=== PATIENT | female | born 1995 | race Caucasian/White ===

== ENCOUNTER → 2020-01-09 | Outpatient (CLI) | payer BC, OTHER ==
--- NOTE | 2020-01-09 13:58 | FL ---
Barium swallow HISTORY: Nausea and vomiting 87 seconds fluoroscopy time, 76 images obtained. Patient was given high density barium to drink. The swallowing mechanism is normal. There is no extrinsic or intrinsic esophageal lesion present. Sma ll sliding hiatal hernia present. No gastroesophageal reflux. IMPRESSION: No abnormality evident.
== END | disposition home or self-care (01) ==
LOC: RADUSWWP 10:06
PROVIDERS: ATTEND Family Medicine
DX: R13.19 Other dysphagia (principal)
CPT/HCPCS: 74220

== ENCOUNTER 2020-03-26 08:41 | Day surgery (SDC) | payer BC ==
[2020-03-17 14:25] VITALS: BMI 33.3
[~2020-03-26 08:41] MED LIST: LACTATED RINGERS 1,000 ML IV SCH; LIDOCAINE 1% (10MG/ML) FOR IV START INTRADERMA PRN
[2020-03-26 09:30] VITALS: TEMP 97.7
[2020-03-26] MEDS ORDERED: KETAMINE 10 MG/ML 20 ML VIAL ONE (10:12)
[2020-03-26] MEDS ORDERED: PROPOFOL 10 MG/ML 20 ML VIAL IV ONE (10:12)
[2020-03-26] MEDS ORDERED: GLYCOPYRROLATE 0.2 MG/ML 2 ML VIAL ONE (10:12)
[2020-03-26] MEDS ORDERED: LIDOCAINE 1% INJ 10MG/ML (20 ML MDV) ONE (10:12)
--- NOTE | 2020-03-26 10:48 | P.PCN ---
Date of Procedure: 03/26/20 Description of Procedure: Brief history: Patient is a pleasant 24-year-old female scheduled for an elective upper endoscopy as well as colonoscopy as a part of evaluation of dysphagia and noninfective gastritis and colitis, also has history of reflux, altered bowel function and diarrhea. She reports symptoms of difficulty swallowing and occurring intermittently. She'll have periods where she has no difficulty and then they will increase and can last for days. She also reports alternating diarrhea and constipation and abdominal pain. Procedure performed: Esophagogastroduodenoscopy with biopsy Colonoscopy with biopsy Estimated blood loss: Minimal. Preoperative diagnosis: Dysphagia, reflux, noninfected gastritis and colitis, altered bowel function, diarrhea, no prior endoscopy reported Anesthesia: MAC Procedure: After informed consent was obtained from the patient was brought into the endoscopy unit and IV sedation was administered by anesthesia under continuous monitoring. Initially upper endoscopy was done. The Olympus GF 190 video endoscope was inserted into the mouth and esophagus intubated without any difficulty and was gradually advanced into the stomach and duodenum and carefully examined. The bulb and second part of the duodenum appeared normal, with biopsies taken to rule out celiac disease. The scope was then withdrawn into the stomach adequately insufflated with air and upon careful examination the antrum and body, cardia and fundus appeared normal, except for some mild scattered erythema in antrum and body suggestive of mild gastritis of biopsies taken. The scope was then withdrawn into the esophagus. The GE junction was located at 40 cm to the incisors. It appeared regular with no erythema erosions or ulcerations, there were also no strictures or masses to explain symptoms of dysphagia. She did have 5 cm of salmon-colored mucosa in the distal esophagus suspicious for Calles's esophagus with biopsies of lower esophagus taken. Rest of the esophagus appeared normal. Patient tolerated the procedure well. At this time the patient continued to remain sedation. Initial digital rectal examination was normal. Olympus CF 190 video colonoscope was then inserted into the rectum and gradually advanced to the cecum without any difficulty. Careful examination was performed as the scope was gradually being withdrawn. The prep was excellent. The cecum, ascending colon, transverse colon, descending colon, sigmoid colon and rectum appeared normal. Retroflexion was performed in the rectum and no lesions were noted. Patient tolerated the procedure well. Impression: 1. No stricturing, ulceration or masses noted. 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 Mild gastritis. Biopsies of the duodenum, antrum and body and lower esophagus. 2. Normal-appearing colon from rectum to cecum and normal appearing terminal ileum with biopsies taken of the terminal ileum, right colon and left colon in the setting of altered bowel function and diarrhea. Recommendations: Findings of this examination were discussed with the patient as well as her family. Okay to resume diet. Okay to resume medications. Continue Protonix 40 mg daily in the setting of suspected Calles's esophagus, possible diagnosis discussed with the patient laying 2 would require repeat EGD in 2 years if Calles's esophagus is confirmed on biopsies. Await pathology from biopsies from EGD and colonoscopy. Continue symptomatic management. Repeat EGD in 2 years as stated if Calles's esophagus is confirmed.
[2020-03-26 10:49] VITALS: RESP 16
[2020-03-26 11:07] VITALS: BP 113/57; PULSE 64
== END 2020-03-26 11:23 ==
LOC: ORWHC2ENDO 08:41
PROVIDERS: ATTEND Internal Medicine
DX: R19.7 Diarrhea, unspecified (principal); K59.00 Constipation, unspecified; K21.9 Gastro-esophageal reflux disease without esophagitis; K29.50 Unspecified chronic gastritis without bleeding; K22.70 Barrett's esophagus without dysplasia; J45.909 Unspecified asthma, uncomplicated; F41.9 Anxiety disorder, unspecified; F32.9 Major depressive disorder, single episode, unspecified; M19.90 Unspecified osteoarthritis, unspecified site; G47.00 Insomnia, unspecified; F43.10 Post-traumatic stress disorder, unspecified; Z88.5 Allergy status to narcotic agent; Z91.010 Allergy to peanuts; Z91.018 Allergy to other foods; Z91.013 Allergy to seafood; Z91.011 Allergy to milk products; Z79.899 Other long term (current) drug therapy; Z97.5 Presence of (intrauterine) contraceptive device; Z98.890 Other specified postprocedural states; Z90.89 Acquired absence of other organs; Z79.51 Long term (current) use of inhaled steroids; Z87.898 Personal history of other specified conditions
CPT/HCPCS: 81025; 88305; 45380; 43239; J2001; J2704

== ENCOUNTER 2022-01-11 23:14 | Emergency (ER) | payer BC, OTHER ==
[2022-01-11 23:22] VITALS: TEMP 98.2
[2022-01-11] MEDS ORDERED: diphenhydrAMINE 50 MG/ML 1 ML VIAL IVP STA (23:38)
[2022-01-11] MEDS ORDERED: SODIUM CHLORIDE 0.9% 1,000 ML IV STA (23:38)
[2022-01-11] MEDS ORDERED: METOCLOPRAMIDE 5 MG/ML 2 ML VIAL IVP STA (23:38)
[2022-01-11] MEDS ORDERED: KETOROLAC 15 MG/ML 1 ML VIAL IVP STA (23:38)
--- NOTE | 2022-01-11 23:38 | ED ---
Headache HPI - General Chief Complaint: Headache Stated Complaint: Headache, lightheaded Time Seen by Provider: 01/11/22 23:27 Source: RN notes reviewed Mode of arrival: wheelchair - History of Present Illness Initial Comments: This is a pleasant 26-year-old female presents complaining of a headache, sore throat, dry cough. Patient states that she suspects it might be carbon monoxide poisoning as she is staying at a person's house and a detector went off a few days ago. She states nobody else is staying in that portion of the house. No other individuals are ill. Patient states she does have a history of migraine headaches. Denying any fever. Denying any productive cough. Denies chance of . no fever or chills, no changes in vision or hearing, no ear pain, nasal discharge, difficulty with speech, no neck pain, no chest pain or shortness of breath, no abdominal pain, no nausea or vomiting, no changes in urination or bowel movements, no numbness or tingling, no extremity pain, no skin rashes or lesions. Past medical, surgical, social, and family history reviewed. MD Complaint: headache - Related Data Home Medications Medication Instructions Recorded Confirmed Albuterol Nebulized [Ventolin 2.5 mg INHALATION Q6HR PRN 01/21/20 03/17/20 Nebulized] Albuterol Sulfate [Proair Hfa] 2 puff INHALATION DIRECTED PRN 01/21/20 03/17/20 Beclomethasone Dip 80 Mcg/Puff 1 puff INHALATION DIRECTED PRN 01/21/20 03/17/20 [Qvar 80 mcg] Budesonide-Formot 160-4.5 Mcg 2 puff INHALATION BID 01/21/20 03/17/20 [Symbicort 160-4.5 Mcg Inhaler] Etonogestrel/Ethinyl Estradiol 1 each VG Q21D 01/21/20 03/17/20 [Nuvaring Vaginal Ring] Fluticasone Nasal [place] [Flonase 1 spray EA NOSTRIL BID 01/21/20 03/17/20 Nasal [place]] Ibuprofen 800 mg PO Q8H PRN 01/21/20 03/17/20 Pantoprazole [Protonix] 40 mg PO QAM 01/21/20 03/17/20 QUEtiapine [SEROquel] 100 mg PO HS 01/21/20 03/17/20 busPIRone HCL 10 mg PO TID 01/21/20 03/17/20 hydrOXYzine HCL [Atarax] 25 mg PO TID 01/21/20 03/17/20 tiZANidine [Zanaflex] 8 mg PO Q8HR PRN 01/21/20 03/17/20 EPINEPHrine (Auto Inject) [Epipen] 0.3 mg IM ONCE PRN 03/17/20 03/17/20 Allergies Allergy/AdvReac Type Severity Reaction Status Date / Time codeine Allergy Itching Verified 01/11/22 23:22 peanut Allergy Dyspnea Verified 01/11/22 23:22 tree nut [Nut] Allergy Dyspnea Verified 01/11/22 23:22 crab Allergy Unknown Uncoded 03/17/20 12:55 dairy Allergy Unknown Uncoded 03/17/20 12:55 rye Allergy Unknown Uncoded 03/17/20 12:55 wheat Allergy Unknown Uncoded 03/17/20 12:55 Review of Systems ROS Statement: Those systems with pertinent positive or pertinent negative responses have been documented in the HPI. ROS Other: All systems not noted in ROS Statement are negative. Past Medical History Past Medical History: Asthma, GERD/Reflux, Osteoarthritis (OA) Additional Past Medical History / Comment(s): migraines, insomnia, "passing out from low protein", frequent nausea on & off for years, intermittent abd. pain, strong family hx. of celiac disease History of Any Multi-Drug Resistant Organisms: None Reported Past Surgical History: Adenoidectomy, Tonsillectomy Additional Past Surgical History / Comment(s): wisdom teeth removal, side of great toes removed for ingrown toenails, exploratory laparoscopy Past Anesthesia/Blood Transfusion Reactions: Motion Sickness Past Psychological History: Anxiety, Depression, PTSD Smoking Status: Former smoker Past Alcohol Use History: Occasional Past Drug Use History: None Reported - Past Family History Mother Family Medical History: No Reported History Additional Family Medical History / Comment(s): family hx celiac disease General Exam - General Exam Comments Initial Comments: Nontoxic-appearing 26-year-old female in minimal distress secondary to headache General appearance: alert, in distress (Minimal) Head exam: Present: atraumatic, normocephalic, normal inspection Eye exam: Present: normal appearance, PERRL, EOMI. Absent: scleral icterus, conjunctival injection, periorbital swelling ENT exam: Present: normal exam, normal oropharynx, mucous membranes moist, TM's normal bilaterally, normal external ear exam. Absent: mucous membranes dry Neck exam: Present: normal inspection, full ROM. Absent: tenderness, men ingismus, lymphadenopathy Respiratory exam: Present: normal lung sounds bilaterally, other (Dry, nonproductive cough noted). Absent: respiratory distress, wheezes, rales, rho nchi, stridor, chest wall tenderness, accessory muscle use, decreased breath sounds, prolonged expiratory Cardiovascular Exam: Present: regular rate, normal rhythm, normal heart sounds. Absent: systolic murmur, diastolic murmur, rubs, gallop, clicks GI/Abdominal exam: Present: soft, normal bowel sounds. Absent: distended, tenderness, guarding, rebound, rigid Extremities exam: Present: normal inspection, full ROM, normal capillary refill. Absent: tenderness, pedal edema, joint swelling, calf tenderness Back exam: Present: normal inspection Neurological exam: Present: alert, oriented X3, CN II-XII intact Psychiatric exam: Present: normal affect, normal mood Skin exam: Present: warm, dry, intact, normal color, other (No cannon red lips). Absent: rash, cyanosis, diaphoretic, erythema, urticaria, vesicles, petechiae, pallor, mottled, abrasion Course Vital Signs 01/11/22 01/11/22 23:20 23:31 Temperature 98.2 F Pulse Rate 74 74 Respiratory 18 20 Rate Blood Pressure 102/69 O2 Sat by Pulse 100 100 Oximetry - Reevaluation(s) Reevaluation #1: 01/12/22 01:44 Medical record is reviewed Symptoms are improved here in the emergency department Patient is informed of results and questions answered Patient in no distress Medical Decision Making - Medical Decision Making Patient symptomology, seems to more indicative of a viral respiratory infection with dry cough rather than carbon monoxide poisoning. However we'll add on a ca rboxyhemoglobin as well as viral testing. Hydration, headache treatment, plan for reevaluation Patient's carbon monoxide level is 2.5. Going to advise that she does not go back into that area. However, this is relatively low. Patient is a nonsmoker. only treatment would be to remove the patient from the area. Patient is in no distress. Follow-up with your regular physician as directed. Return to the ER immediately if any symptoms worsen, new symptoms arise, or any other problems develop. The case was discussed in detail with ED attending physician. Presentation, findings, treatment plan discussed in detail. Director Veterinary Dr. Wright - Lab Data Result diagrams: 01/12/22 00:01 01/12/22 00:01 Lab Results 01/12/22 01/12/22 01/12/22 Range/Units 00:01 00:01 00:01 WBC 8.5 (3.8-10.6) k/uL RBC 4.52 (3.80-5.40) m/uL Hgb 13.1 (11.4-16.0) gm/dL Hct 38.5 (34.0-46.0) % MCV 85.1 (80.0-100.0) fL MCH 29.0 (25.0-35.0) pg MCHC 34.1 (31.0-37.0) g/dL RDW 12.9 (11.5-15.5) % Plt Count 305 (150-450) k/uL MPV 8.5 Neutrophils % 63 % Lymphocytes % 26 % Monocytes % 6 % Eosinophils % 4 % Basophils % 1 % Neutrophils # 5.3 (1.3-7.7) k/uL Lymphocytes # 2.2 (1.0-4.8) k/uL Monocytes # 0.5 (0-1.0) k/uL Eosinophils # 0.3 (0-0.7) k/uL Basophils # 0.0 (0-0.2) k/uL Carbon Monoxide, Quant (<10.0) % Sodium 137 (137-145) mmol/L Potassium 3.9 (3.5-5.1) mmol/L Chloride 107 (98-107) mmol/L Carbon Dioxide 23 (22-30) mmol/L Anion Gap 7 mmol/L BUN 6 L (7-17) mg/dL Creatinine 0.68 (0.52-1.04) mg/dL Est GFR (CKD-EPI)AfAm >90 (>60 ml/min/1.73 sqM) Est GFR (CKD-EPI)NonAf >90 (>60 ml/min/1.73 sqM) Glucose 97 (74-99) mg/dL Calcium 9.0 (8.4-10.2) mg/dL Total Bilirubin 0.3 (0.2-1.3) mg/dL AST 30 (14-36) U/L ALT 28 (4-34) U/L Alkaline Phosphatase 133 H (38-126) U/L Total Protein 6.9 (6.3-8.2) g/dL Albumin 4.3 (3.5-5.0) g/dL HCG, Qual Not Detected Heterophile Antibody (Negative) Influenza Type A (PCR) Not Detected (Not Detectd) Influenza Type B (PCR) Not Detected (Not Detectd) RSV (PCR) Not Detected (Not Detectd) SARS-CoV-2 (PCR) Not Detected (Not Detectd) Group A Strep (PCR) (Not Detectd) 01/12/22 01/12/22 01/12/22 Range/Units 00:01 00:01 01:17 WBC (3.8-10.6) k/uL RBC (3.80-5.40) m/uL Hgb (11.4-16.0) gm/dL Hct (34.0-46.0) % MCV (80.0-100.0) fL MCH (25.0-35.0) pg MCHC (31.0-37.0) g/dL RDW (11.5-15.5) % Plt Count (150-450) k/uL MPV Neutrophils % % Lymphocytes % % Monocytes % % Eosinophils % % Basophils % % Neutrophils # (1.3-7.7) k/uL Lymphocytes # (1.0-4.8) k/uL Monocytes # (0-1.0) k/uL Eosinophils # (0-0.7) k/uL Basophils # (0-0.2) k/uL Carbon Monoxide, Quant 2.5 (<10.0) % Sodium (137-145) mmol/L Potassium (3.5-5.1) mmol/L Chloride (98-107) mmol/L Carbon Dioxide (22-30) mmol/L Anion Gap mmol/L BUN (7-17) mg/dL Creatinine (0.52-1.04) mg/dL Est GFR (CKD-EPI)AfAm (>60 ml/min/1.73 sqM) Est GFR (CKD-EPI)NonAf (>60 ml/min/1.73 sqM) Glucose (74-99) mg/dL Calcium (8.4-10.2) mg/dL Total Bilirubin (0.2-1.3) mg/dL AST (14-36) U/L ALT (4-34) U/L Alkaline Phosphatase (38-126) U/L Total Protein (6.3-8.2) g/dL Albumin (3.5-5.0) g/dL HCG, Qual Heterophile Antibody Negative (Negative) Influenza Type A (PCR) (Not Detectd) Influenza Type B (PCR) (Not Detectd) RSV (PCR) (Not Detectd) SARS-CoV-2 (PCR) (Not Detectd) Group A Strep (PCR) NOT DETECTED (Not Detectd) Disposition Clinical Impression: Headache, Carbon dioxide blood increased Disposition: HOME SELF-CARE Condition: Good Instructions (If sedation given, give patient instructions): Acute Headache (ED), Carbon Monoxide Poisoning (ED) Additional Instructions: Carbon monoxide level of 2.5 is higher than normal. This would indicate possible low level carbon monoxide exposure. DO not go back in the area possible exposure. Follow-up with your regular physician as directed. Return to the ER immediately if any symptoms worsen, new symptoms arise, or any other problems develop. Is patient prescribed a controlled substance at d/c from ED?: No Referrals: None,Stated [Primary Care Provider] - 1-2 days Time of Disposition: 02:04
[2022-01-12 00:36] LABS: Basophils % (A) 1 %; Eosinophils # (A) 0.3 k/uL (0-0.7); Eosinophils % (A) 4 %; HCT 38.5 % (34.0-46.0); HGB 13.1 gm/dL (11.4-16.0); Lymphocytes # (A) 2.2 k/uL (1.0-4.8); Lymphocytes % (A) 26 %; MCHC 34.1 g/dL (31.0-37.0); MCV 85.1 fL (80.0-100.0); Mean Platelet Volume 8.5; Monocytes # (A) 0.5 k/uL (0-1.0); Monocytes % (A) 6 %; Neutrophils # (A) 5.3 k/uL (1.3-7.7); Neutrophils % (A) 63 %; Platelet Count 305 k/uL (150-450); RBC 4.52 m/uL (3.80-5.40); RDW 12.9 % (11.5-15.5); WBC 8.5 k/uL (3.8-10.6)
[2022-01-12 00:46] LABS: ALT 28 U/L (4-34); AST 30 U/L (14-36); African American GFR (CKD) >90 (>60 ml/min/1.73 sqM); Albumin 4.3 g/dL (3.5-5.0); Alkaline Phosphatase 133 U/L (38-126); Anion Gap 7 mmol/L; Blood Urea Nitrogen 6 mg/dL (7-17); Carbon Dioxide 23 mmol/L (22-30); Chloride 107 mmol/L (98-107); Glucose 97 mg/dL (74-99); Non-African American GFR(CKD) >90 (>60 ml/min/1.73 sqM); Potassium 3.9 mmol/L (3.5-5.1); Sodium 137 mmol/L (137-145); Total Bilirubin 0.3 mg/dL (0.2-1.3); Total Protein 6.9 g/dL (6.3-8.2)
[2022-01-12 01:12] LABS: HCG,Qualitative Serum Not Detected
[2022-01-12 02:15] VITALS: BP 130/68; PULSE 77; RESP 18
== END 2022-01-12 02:14 | disposition home or self-care (01) ==
LOC: EC 23:14
DX: R51.9 Headache, unspecified (principal); R79.81 Abnormal blood-gas level; F41.9 Anxiety disorder, unspecified; F32.A Depression, unspecified; Z87.891 Personal history of nicotine dependence; Z20.822 Contact with and (suspected) exposure to COVID-19; J45.909 Unspecified asthma, uncomplicated; M19.90 Unspecified osteoarthritis, unspecified site; Z79.51 Long term (current) use of inhaled steroids; Z79.899 Other long term (current) drug therapy; Z91.010 Allergy to peanuts; Z91.011 Allergy to milk products; Z91.018 Allergy to other foods; Z91.013 Allergy to seafood; Z88.5 Allergy status to narcotic agent
CPT/HCPCS: 36415; 87651; 80053; 82375; 85025; 86308; 84703; 87636; 99284; 96374; 96375; 96361; J2765; J1885

== ENCOUNTER 2022-01-25 18:20 | Emergency (ER) | payer BC ==
[2022-01-25] MEDS ORDERED: BUPIVACAINE (PF) 0.5% 30 ML VIAL SQ STA (19:19)
[2022-01-25] MEDS ORDERED: LIDOCAINE 1% INJ 10MG/ML (30 ML VIAL-PF) SQ ONE (19:20)
[2022-01-25] MEDS ORDERED: SULFAMETH-TMP DS STARTER PACK 2 TAB BTL PO STA (19:21)
--- NOTE | 2022-01-25 19:24 | ED ---
Skin/Abscess/FB HPI - General Chief complaint: Skin/Abscess/Foreign Body Stated complaint: Toe Nail Infection Time Seen by Provider: 01/25/22 19:04 Source: patient, RN notes reviewed Mode of arrival: wheelchair Limitations: no limitations - History of Present Illness Initial comments: This is a pleasant 26-year-old female presents to emergency parent complaining of with her left great toenail. This usually goes she had to have the toenail removed after became infected. She states for the past few days she is sustain some trauma to the nail itself. She states she struck it 2 days ago nearly avulsed it. She hit it again today and the toenail is loose. It is causing a lot of pain when she irritates the area. She has developed some redness to the eponychial area. No fever or chills. No lymphangitis. Remainder of foot is unremarkable. Sensation intact. No headache, no fever or chills, no changes in vision or hearing, no sore throat or difficulty with speech, no neck pain, no chest pain or shortness of breath, no abdominal pain, no nausea or vomiting, no changes in urination or bowel movements, no numbness or tingling, no history of immunosuppression or diabetes. No history of MRSA., no skin rashes or lesions. Past medical, surgical, social, and family history reviewed. - Related Data Home Medications Medication Instructions Recorded Confirmed Albuterol Nebulized [Ventolin 2.5 mg INHALATION Q6HR PRN 01/21/20 03/17/20 Nebulized] Albuterol Sulfate [Proair Hfa] 2 puff INHALATION DIRECTED PRN 01/21/20 03/17/20 Beclomethasone Dip 80 Mcg/Puff 1 puff INHALATION DIRECTED PRN 01/21/20 03/17/20 [Qvar 80 mcg] Budesonide-Formot 160-4.5 Mcg 2 puff INHALATION BID 01/21/20 03/17/20 [Symbicort 160-4.5 Mcg Inhaler] Etonogestrel/Ethinyl Estradiol 1 each VG Q21D 01/21/20 03/17/20 [Nuvaring Vaginal Ring] Fluticasone Nasal [place] [Flonase 1 spray EA NOSTRIL BID 01/21/20 03/17/20 Nasal [place]] Ibuprofen 800 mg PO Q8H PRN 01/21/20 03/17/20 Pantoprazole [Protonix] 40 mg PO QAM 01/21/20 03/17/20 QUEtiapine [SEROquel] 100 mg PO HS 01/21/20 03/17/20 busPIRone HCL 10 mg PO TID 01/21/20 03/17/20 hydrOXYzine HCL [Atarax] 25 mg PO TID 01/21/20 03/17/20 tiZANidine [Zanaflex] 8 mg PO Q8HR PRN 01/21/20 03/17/20 EPINEPHrine (Auto Inject) [Epipen] 0.3 mg IM ONCE PRN 03/17/20 03/17/20 Previous Rx's Medication Instructions Recorded Acetaminophen Tab [Tylenol Tab] 500 mg PO Q6H PRN #24 tablet 01/25/22 Ibuprofen [Motrin] 600 mg PO Q8HR PRN #30 tab 01/25/22 Sulfamethox-Tmp 800-160Mg [Bactrim 1 tab PO Q12HR #20 tab 01/25/22 DS 800-160 mg] Allergies Allergy/AdvReac Type Severity Reaction Status Date / Time codeine Allergy Itching Verified 01/25/22 18:31 peanut Allergy Dyspnea Verified 01/25/22 18:31 tree nut [Nut] Allergy Dyspnea Verified 01/25/22 18:31 crab Allergy Unknown Uncoded 01/25/22 18:31 dairy Allergy Unknown Uncoded 01/25/22 18:31 rye Allergy Unknown Uncoded 01/25/22 18:31 wheat Allergy Unknown Uncoded 01/25/22 18:31 Review of Systems ROS Statement: Those systems with pertinent positive or pertinent negative responses have been documented in the HPI. ROS Other: All systems not noted in ROS Statement are negative. Past Medical History Past Medical History: Asthma, GERD/Reflux, Osteoarthritis (OA) Additional Past Medical History / Comment(s): migraines, insomnia, "passing out from low protein", frequent nausea on & off for years, intermittent abd. pain, strong family hx. of celiac disease History of Any Multi-Drug Resistant Organisms: None Reported Past Surgical History: Adenoidectomy, Tonsillectomy Additional Past Surgical History / Comment(s): wisdom teeth removal, side of great toes removed for ingrown toenails, exploratory laparoscopy Past Anesthesia/Blood Transfusion Reactions: Motion Sickness Past Psychological History: Anxiety, Depression, PTSD Smoking Status: Former smoker Past Alcohol Use History: Occasional Past Drug Use History: None Reported - Past Family History Mother Family Medical History: No Reported History Additional Family Medical History / Comment(s): family hx celiac disease General Exam - General Exam Comments Initial Comments: Patient does not appear to be ill or toxic. Limitations: no limitations General appearance: alert, obese Head exam: Present: atraumatic Eye exam: Present: normal appearance, EOMI Neck exam: Present: normal inspection Respiratory exam: Present: normal lung sounds bilaterally. Absent: respiratory distress, wheezes, rales, rhonchi, stridor Cardiovascular Exam: Present: regular rate, normal rhythm, normal heart sounds. Absent: systolic murmur, diastolic murmur, rubs, gallop, clicks GI/Abdominal exam: Absent: distended Left Lower Leg exam: Present: normal inspection. Absent: tenderness, swelling Ankle exam: Present: normal inspection, full ROM. Absent: tenderness, swelling Foot/Toe exam: Present: full ROM, tenderness (Great toe, left, with nail plate), erythema (Left great toe eponychial area, no drainage, no evidence of abscess, no lymphangitis), nail avulsion (Partial avulsion). Absent: swelling, abrasion, laceration, ecchymosis, deformity, crepitus, dislocation, amputation, puncture wound, foreign body, calcaneal tenderness, tenderness at base of 5th metatarsal, subungual hematoma Neurovascular tendon exam: Present: no vascular compromise. Absent: pulse deficit, abnormal cap refill, tendon deficit, extremity cold to touch, pallor, abnormal 2-point discrimination, decreased fine/light touch, foot drop, peroneal nerve deficit Gait: observed and normal Course Vital Signs 01/25/22 18:28 Temperature 97.7 F Pulse Rate 74 Respiratory 18 Rate Blood Pressure 126/75 O2 Sat by Pulse 100 Oximetry Procedures - Procedures Initial comment: Left great toe was prepped and draped in sterile fashion. Betadine was used to cleanse the area. Digital block was performed. Nail plate was loosened from the nailbed using hemostats. Nail was removed without difficulty. Antibiotic ointment applied. Sterile dressing applied. Patient tolerated well. - Nerve Block Consent Obtained: verbal consent Local Anesthetic Used: Marcaine 0.5% Amount of anesthesia used: 3 Side: left (Great toe) Nerve Blocks: digital (Left great toe) Procedure Successful: Yes Complications: none Patient Tolerated Procedure: well, no complications Medical Decision Making - Medical Decision Making Patient counseled on care of nail plate removal. Counseled on signs and sy mptoms of infection. Bactrim DS one tablet twice daily for 10 days. Return Parameters. Patient Voiced Understanding. Patient was told to return to the ER for any signs or symptoms worsen. Told to return immediately if any other problems arise. All questions answered. Treatment plan discussed. Patient in agreement Every effort has been made to ensure accuracy of this dictation. However, due to the limitations of electronic medical records and dictation devices, errors in charting still occur. The case was discussed in detail with ED attending physician. Presentation, findings, treatment plan discussed in detail. Stave Saw Operator Dr. Richter Disposition Clinical Impression: Nail avulsion of toe Narrative: Left great toenail avulsion Disposition: HOME SELF-CARE Condition: Good Instructions (If sedation given, give patient instructions): Nail Avulsion (ED), Nail Removal (ED) Additional Instructions: Take the antibiotics as directed. Wash the wound daily with warm soapy water. Apply thin layer of antibiotic ointment as discussed. Keep covered with a dressing for 10 days. Follow-up with your regular physician as directed. Return to the ER immediately if any symptoms worsen, new symptoms arise, or any other problems develop. Is patient prescribed a controlled substance at d/c from ED?: No Referrals: None,Stated [Primary Care Provider] - 1-2 days Time of Disposition: 20:01
[2022-01-25] MEDS ORDERED: BACITRACIN OINT 1 EACH PACKET TOPICAL ONE (19:36)
[2022-01-25 20:41] VITALS: BP 140/90; PULSE 66; RESP 14; TEMP 96.9
== END 2022-01-25 20:41 | disposition home or self-care (01) ==
LOC: EC 18:20
DX: S91.202A Unspecified open wound of left great toe with damage to nail, initial encounter (principal); J45.909 Unspecified asthma, uncomplicated; K21.9 Gastro-esophageal reflux disease without esophagitis; F41.9 Anxiety disorder, unspecified; F32.A Depression, unspecified; Z87.891 Personal history of nicotine dependence; Z79.51 Long term (current) use of inhaled steroids; Z79.899 Other long term (current) drug therapy; X58.XXXA Exposure to other specified factors, initial encounter
CPT/HCPCS: 99282; 96372; 11730; J2001

== ENCOUNTER 2022-08-29 17:25 | Emergency (ER) | payer OTHER ==
[2022-08-29 17:36] VITALS: RESP 18
[2022-08-29] MEDS ORDERED: LIDOCAINE 1% INJ 10MG/ML (30 ML VIAL-PF) SQ ONE (18:12)
--- NOTE | 2022-08-29 20:06 | ED ---
General Adult HPI - General Chief complaint: Extremity Injury, Lower Stated complaint: right toe injury Time Seen by Provider: 08/29/22 17:57 Source: patient Mode of arrival: ambulatory - History of Present Illness Initial comments: 27-year-old female presents emergency department chief complaint of right toenail problem. She states that she caught her toenail on the running board of her vehicle. She states that the toenail pulled up and she put Neosporin on the area beneath the nail. She reports no pain in the toe itself. She also reports full range of motion in the toes. She states she takes no daily medications. Up to date on tetanus. - Related Data Home Medications Medication Instructions Recorded Confirmed Albuterol Nebulized [Ventolin 2.5 mg INHALATION Q6HR PRN 01/21/20 03/17/20 Nebulized] Albuterol Sulfate [Proair Hfa] 2 puff INHALATION DIRECTED PRN 01/21/20 03/17/20 Beclomethasone Dip 80 Mcg/Puff 1 puff INHALATION DIRECTED PRN 01/21/20 03/17/20 [Qvar 80 mcg] Budesonide-Formot 160-4.5 Mcg 2 puff INHALATION BID 01/21/20 03/17/20 [Symbicort 160-4.5 Mcg Inhaler] Etonogestrel/Ethinyl Estradiol 1 each VG Q21D 01/21/20 03/17/20 [Nuvaring Vaginal Ring] Fluticasone Nasal [place] [Flonase 1 spray EA NOSTRIL BID 01/21/20 03/17/20 Nasal [place]] Ibuprofen 800 mg PO Q8H PRN 01/21/20 03/17/20 Pantoprazole [Protonix] 40 mg PO QAM 01/21/20 03/17/20 QUEtiapine [SEROquel] 100 mg PO HS 01/21/20 03/17/20 busPIRone HCL 10 mg PO TID 01/21/20 03/17/20 hydrOXYzine HCL [Atarax] 25 mg PO TID 01/21/20 03/17/20 tiZANidine [Zanaflex] 8 mg PO Q8HR PRN 01/21/20 03/17/20 EPINEPHrine (Auto Inject) [Epipen] 0.3 mg IM ONCE PRN 03/17/20 03/17/20 Previous Rx's Medication Instructions Recorded Acetaminophen Tab [Tylenol Tab] 500 mg PO Q6H PRN #24 tablet 01/25/22 Ibuprofen [Motrin] 600 mg PO Q8HR PRN #30 tab 01/25/22 Sulfamethox-Tmp 800-160Mg [Bactrim 1 tab PO Q12HR #20 tab 01/25/22 DS 800-160 mg] Allergies Allergy/AdvReac Type Severity Reaction Status Date / Time codeine Allergy Itching Verified 08/29/22 17:36 peanut Allergy Dyspnea Verified 08/29/22 17:36 tree nut [Nut] Allergy Dyspnea Verified 08/29/22 17:36 crab Allergy Unknown Uncoded 08/29/22 17:36 dairy Allergy Unknown Uncoded 08/29/22 17:36 rye Allergy Unknown Uncoded 08/29/22 17:36 wheat Allergy Unknown Uncoded 08/29/22 17:36 Review of Systems ROS Statement: Those systems with pertinent positive or pertinent negative responses have been documented in the HPI. ROS Other: All systems not noted in ROS Statement are negative. Past Medical History Past Medical History: Asthma, GERD/Reflux, Osteoarthritis (OA) Additional Past Medical History / Comment(s): migraines, insomnia, "passing out from low protein", frequent nausea on & off for years, intermittent abd. pain, strong family hx. of celiac disease History of Any Multi-Drug Resistant Organisms: None Reported Past Surgical History: Adenoidectomy, Tonsillectomy Additional Past Surgical History / Comment(s): wisdom teeth removal, side of great toes removed for ingrown toenails, exploratory laparoscopy Past Anesthesia/Blood Transfusion Reactions: Motion Sickness Past Psychological History: Anxiety, Depression, PTSD Smoking Status: Former smoker Past Alcohol Use History: Occasional Past Drug Use History: None Reported - Past Family History Mother Family Medical History: No Reported History Additional Family Medical History / Comment(s): family hx celiac disease General Exam Limitations: no limitations General appearance: alert, in no apparent distress Head exam: Present: atraumatic, normocephalic, normal inspection Eye exam: Present: normal appearance. Absent: scleral icterus, conjunctival injection, periorbital swelling ENT exam: Present: normal exam, mucous membranes moist Neck exam: Present: normal inspection. Absent: tenderness, meningismus, lymphadenopathy Respiratory exam: Present: normal lung sounds bilaterally. Absent: respiratory distress, wheezes, rales, rhonchi, stridor Cardiovascular Exam: Present: regular rate, normal rhythm, normal heart sounds. Absent: systolic murmur, diastolic murmur, rubs, gallop, clicks Extremities exam: Present: full ROM, normal capillary refill, other (right 1st toe nail lifted, no tenderness to foot or toes, DP and PT pulses 2+ ). Absent: tenderness, pedal edema, joint swelling, calf tenderness Back exam: Present: normal inspection Neurological exam: Present: alert, oriented X3 Psychiatric exam: Present: normal affect, normal mood Skin exam: Present: warm, dry, intact, normal color, other (toenail of left 1st digit lifted ). Absent: rash Course Vital Signs 08/29/22 08/29/22 17:30 20:10 Temperature 97.9 F 98.2 F Pulse Rate 89 85 Respiratory 18 18 Rate Blood Pressure 148/90 125/91 O2 Sat by Pulse 96 98 Oximetry Procedures - Procedures Initial comment: Toenail removal was performed with digital block Medical Decision Making - Medical Decision Making Was pt. sent in by a medical professional or institution (, PA, [facility], urgent care, hospital, or senior living...) When possible be specific @ -No Did you speak to anyone other than the patient for history (EMS, parent, family, police, friend...)? What history was obtained from this source @ -No Did you review nursing and triage notes (agree or disagree)? Why? @ -I reviewed and agree with nursing and triage notes Were old charts reviewed (outside hosp., previous admission, EMS record, old EKG, old radiological studies, urgent care reports/EKG's, senior living records)? Report findings @ -No old charts were reviewed Differential Diagnosis (chest pain, altered mental status, abdominal pain women, abdominal pain men, vaginal bleeding, weakness, fever, dyspnea, syncope, headache, dizziness, GI bleed, back pain, seizure, CVA, palpatations, mental health, musculoskeletal)? @ -Differential Musculoskeletal Muscular strain, contusion, ligament sprain, fracture, arthritis, septic arthritis, bursitis, cellulitis, muscle spasm, nerve compression, DVT, arterial occlusion, herpes zoster, electrolyte abnormality, tumor.... This is not meant to be in all inclusive list EKG interpreted by me (3pts min.). @ -none X-rays interpreted by me (1pt min.). @ -None done CT interpreted by me (1pt min.). @ -None done U/S interpreted by me (1pt. min.). @ -None done What testing was considered but not performed or refused? (CT, X-rays, U/S, la bs)? Why? @ -None What meds were considered but not given or refused? Why? @ -None Did you discuss the management of the patient with other professionals (professionals i.e. DrDennis, PA, [facility], lab, RT, psych nurse, social science teacher, community development planner, teacher, chief strategy officer, casework manager)? Give summary @ -No Was smoking cessation discussed for >3mins.? @ -No Was critical care preformed (if so, how long)? @ -No Were there social determinants of health that impacted care today? How? (Homelessness, low income, unemployed, alcoholism, drug addiction, transportation, low edu. Level, literacy, decrease access to med. care, halfway, rehab)? @ -No Was there de-escalation of care discussed even if they declined (Discuss DNR or withdrawal of care, Hospice)? DNR status @ -No What co-morbidities impacted this encounter? (DM, HTN, Smoking, COPD, CAD, Cancer, CVA, ARF, Chemo, Hep., AIDS, mental health diagnosis, sleep apnea, morbid obesity)? @ -None Was patient admitted / discharged? Hospital course, mention meds given and route, prescriptions, significant lab abnormalities, going to OR and other pertinent info. @ -discharged. Patient presented to the emergency department for chief complaint of toenail problem. Discussed with patient that we could attempt to preserve the nail by suture or steristrip or remove the nail. Patient wanted the toenail removed. digital block was performed and the toenail was removed with forceps. 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 She was advised to follow up with them. Patient discharged in stable condition. Case discussed with my attending, Dr. Richter Undiagnosed new problem with uncertain prognosis? @ -No Drug Therapy requiring intensive monitoring for toxicity (Heparin, Nitro, Insulin, Cardizem)? @ -No Were any procedures done? @ -toenail removal Diagnosis/symptom? @ -toenail removal Acute, or Chronic, or Acute on Chronic? @ -acute Uncomplicated (without systemic symptoms) or Complicated (systemic symptoms)? @ -uncomplicated Side effects of treatment? @ -No Exacerbation, Progression, or Severe Exacerbation? @ -No Poses a threat to life or bodily function? How? (Chest pain, [place], CA, pneumonia, PE, COPD, DKA, ARF, appy, cholecystitis, CVA, Diverticulitis, Homicidal, Suicidal, threat to staff... and all critical care pts) @ -No Disposition Clinical Impression: Toenail torn away Disposition: HOME SELF-CARE Condition: Stable Instructions (If sedation given, give patient instructions): Nail Removal (ED) Additional Instructions: Please return to the emergency department for new or worsening symptoms. Is patient prescribed a controlled substance at d/c from ED?: No Referrals: None,Stated [Primary Care Provider] - 1-2 days Time of Disposition: 20:05
[2022-08-29 20:11] VITALS: BP 125/91; PULSE 85; TEMP 98.2
== END 2022-08-29 20:11 | disposition home or self-care (01) ==
LOC: EC 17:25
DX: S91.202A Unspecified open wound of left great toe with damage to nail, initial encounter (principal); J45.909 Unspecified asthma, uncomplicated; K21.9 Gastro-esophageal reflux disease without esophagitis; M19.90 Unspecified osteoarthritis, unspecified site; F32.A Depression, unspecified; F41.9 Anxiety disorder, unspecified; Z87.891 Personal history of nicotine dependence; Z79.51 Long term (current) use of inhaled steroids; Z79.899 Other long term (current) drug therapy; Z88.5 Allergy status to narcotic agent; Z91.010 Allergy to peanuts; Z91.013 Allergy to seafood; Z91.018 Allergy to other foods; Z91.011 Allergy to milk products; W22.8XXA Striking against or struck by other objects, initial encounter
CPT/HCPCS: 99283; 11750; J2001